=== PATIENT | female | born 1965 | race Caucasian/White ===

== ENCOUNTER 2018-08-03 10:11 | Observation (INO) | payer OTHER ==
[2018-08-03] MEDS ORDERED: NS 500 ML IV ONE (10:24)
[2018-08-03] MEDS ORDERED: LORazepam 2 MG/ML INJ ONE (10:29)
[2018-08-03 10:30] LABS: PLATELET COUNT 317 10^3/uL (150-400)
[2018-08-03 10:48] LABS: INR 1.04 (0.83-1.16); PROTIME(PATIENT) 13.8 SEC (12.0-15.0)
[2018-08-03] MEDS ORDERED: levETIRAcetam 1500MG/NACL 100 ML IV ONE (10:48)
[2018-08-03] MEDS ORDERED: LORazepam 2 MG/ML INJ IVP ONE ×2 (10:57→20:01)
--- NOTE | 2018-08-03 11:02 | EDPHY ---
H & P Time Seen by Provider: 08/03/18 10:24 HPI/ROS: HPI Seizure. 53-year-old female by ambulance from work. Reported unwitnessed fall per staff at her work place followed by seizure activity. EMS reports repeated seizure activity, brief 15-20 seconds, on the way to the hospital. She was given IV Versed. She tells me that she is not sure what happens. She does take Coumadin for history of DVT. No new medications. Blood sugar per EMS was in the 270s. She complains of a posterior occipital headache at this time. She denies any prior history of seizure disorder. ROS: Constitutional: No fever, no chills. No weakness. Eyes: No discharge. No changes in vision. ENT: No sore throat. No nasal congestion or rhinorrhea. Respiratory: No cough. No shortness of breath. Cardiac: No chest pain, no palpitations. Gastrointestinal: No abdominal pain, no vomiting, no diarrhea. Genitourinary: No hematuria. No dysuria or increased frequency with urination. Musculoskeletal: No back pain. No neck pain. No myalgias or arthralgias. Skin: No rashes. Neurological: No headache. No focal weakness or altered sensation. Past medical history: Type 2 diabetes, hyperlipidemia, hypertension, DVT, hypothyroid, GERD. Medications include lisinopril, metformin, a statin, Coumadin, Protonix. Social history: Nonsmoker. Denies alcohol. Denies IV drugs and street drugs. Here by herself. Physical Exam: General Appearance: Sleepy, postictal, response to verbal stimulus. This patient is responding to questions slow, slurred speech and short answers. This patient appears generally well-hydrated and well-nourished. Eyes: Pupils equal and round at 2-1 mm bilaterally, no pallor or injection. No lid edema, erythema or injection. No nystagmus. No photophobia. ENT, Mouth: Mucous membranes are moist. The pharyngeal tissues are unremarkable. No edema or swelling. No asymmetry suggestive of abscess. No erythema or exudates. No tongue lacerations or abrasions. Respiratory: There are no retractions, lungs are clear to auscultation anterior with good air movement bilaterally. Cardiovascular: Regular rate and rhythm. No murmur. Gastrointestinal: Abdomen is soft and nontender, no masses, bowel sounds normal. No focal tenderness at McBurney's point. No Winslow sign. Neurological: Motor sensory function is grossly intact. Cranial nerves are normal. Skin: Warm and dry, no rashes. Musculoskeletal: Neck is supple and nontender. No significant pain with flexion of her neck. Extremities are symmetrical. All joints range without pain or impingement. Psychiatric: No agitation. No depression. Database: EKG: EKG time is 11:01 a.m.; EKG shows a narrow complex normal sinus rhythm with a ventricular rate of 72. Borderline left axis deviation. The [place], QRS, QT intervals are within normal limits. There are no ST-T wave changes indicative of ischemic or injury pattern. No evidence of right heart strain. Interpreted by me. Imaging: CT head without contrast: Negative. Results were discussed with staff radiologist Dr. Rudy Palomo. CT cervical spine without contrast: Negative except for a right-sided parotid area mass. Results were discussed with staff radiologist Dr. Rudy Palomo Procedures: Emergency department course: Triage vital signs reviewed and are normal. IV was placed per EMS left antecubital. Patient placed on a monitor. She was placed on high-flow humidified nasal cannula oxygen. During her initial 45 min in the emergency department she had 2 more seizures, the 1st 1 lasted about 15 sec and resolved. IV Keppra at 1.5 g has been ordered. She then had another seizure which was more prolonged lasting about 30-60 seconds with some tonic-clonic activity about 20 min later. She was given 1 mg of IV Ativan. CT imaging of brain to be obtained. CT imaging of cervical spine to be obtained secondary to altered mental status and unreliable history and fall. 11:40 a.m., the patient was re-evaluated. Repeat neurologic status is nonfocal. She is still postictal and sedated from a mg of IV Ativan. She is receiving her IV Keppra at this time. She has had 2 short seizures lasting about 15 sec in the interim. I discussed with her the results of her diagnostic studies. We will admit her to the hospitalist service for further evaluation and Neurology consultation. Hospitalist was paged. 11:45 a.m., spoke with on-call hospitalist, case discussed in detail. Patient accepted for admission to the hospitalist service under the care of Dr. Douglas Kimble. Neurology consultation deferred to hospitalist service. Patient's remaining emergency department course under my care has been uneventful. Patient admitted in stable condition. Differential Diagnosis: The differential diagnosis on this patient includes but is not limited to new onset seizure. Intracranial hemorrhage, hyponatremia, hypoglycemia unlikely. This represents a partial list of diagnoses considered. These considerations are based on history, physical exam, past history, reassessment and diagnostic testing. Smoking Status: Current every day smoker Constitutional: Initial Vital Signs O2 Sat (%) 94 08/03/18 10:24 O2 Delivery Mode Nasal Cannula O2 (L/minute) 4 Allergies/Adverse Reactions: No Known Allergies Allergy (Unverified 08/03/18 10:27) Home Medications: Medication Instructions Recorded Lisinopril 08/03/18 metFORMIN HCL 08/03/18 Medical Decision Making - Diagnostics Imaging Results: Imaging Impressions Head CT 08/03/18 10:24 Impression: 1. No acute intracranial findings. 2. Diffuse cerebral atrophy with periventricular and subcortical low attenuation consistent with chronic microvascular ischemic gliosis. 3. Indeterminant right parotid/periparotid mass, which could represent pleomorphic adenoma, adenopathy, or other etiology. Cervical Spine CT 08/03/18 10:25 Impression: 1. No acute posttraumatic abnormality identified. If there is persistent pain or neurologic deficit, consider MRI and/or flexion and extension views if clinically indicated. 2. 4.2 cm mass contiguous with the inferior right parotid, which could represent a parotid tumor such as pleomorphic adenoma or mucoepidermoid carcinoma, adenopathy or other etiology. 3. Additional findings as above. - Data Points Laboratory Results: Laboratory Results 08/03/18 10:00 08/03/18 10:00 08/03/18 08/03/18 08/03/18 10:00 10:00 10:00 WBC 9.06 10^3/uL 10^3/uL (3.80-9.50) RBC 5.12 10^6/uL 10^6/uL (4.18-5.33) Hgb 13.5 g/dL g/dL (12.6-16.3) Hct 44.2 % % (38.0-47.0) MCV 86.3 fL fL (81.5-99.8) MCH 26.4 pg L pg (27.9-34.1) MCHC 30.5 g/dL L g/dL (32.4-36.7) RDW 15.2 % % (11.5-15.2) Plt Count 317 10^3/uL 10^3/uL (150-400) MPV 9.3 fL fL (8.7-11.7) Neut % (Auto) 57.6 % % (39.3-74.2) Lymph % (Auto) 30.9 % % (15.0-45.0) [place] % (Auto) 5.6 % % (4.5-13.0) Eos % (Auto) 5.3 % % (0.6-7.6) Baso % (Auto) 0.4 % % (0.3-1.7) Nucleat RBC Rel Count 0.0 % % (0.0-0.2) Absolute Neuts (auto) 5.21 10^3/uL 10^3/uL (1.70-6.50) Absolute Lymphs (auto) 2.80 10^3/uL 10^3/uL (1.00-3.00) Absolute Monos (auto) 0.51 10^3/uL 10^3/uL (0.30-0.80) Absolute Eos (auto) 0.48 10^3/uL H 10^3/uL (0.03-0.40) Absolute Basos (auto) 0.04 10^3/uL 10^3/uL (0.02-0.10) Absolute Nucleated RBC 0.00 10^3/uL 10^3/uL (0-0.01) Immature Gran % 0.2 % % (0.0-1.1) Immature Gran # 0.02 10^3/uL 10^3/uL (0.00-0.10) PT 13.8 SEC SEC (12.0-15.0) INR 1.04 (0.83-1.16) APTT 28.3 SEC SEC (23.0-38.0) Sodium 140 mEq/L mEq/L (135-145) Potassium 4.1 mEq/L mEq/L (3.5-5.2) Chloride 108 mEq/L mEq/L (97-110) Carbon Dioxide 22 mEq/l mEq/l (22-31) Anion Gap 10 mEq/L mEq/L (6-14) BUN 20 mg/dL mg/dL (7-23) Creatinine 1.0 mg/dL mg/dL (0.6-1.0) Estimated GFR 58 Glucose 240 mg/dL H mg/dL (70-100) Calcium 9.0 mg/dL mg/dL (8.5-10.4) Ethyl Alcohol < 10 mg/dL mg/dL (0-10) Medications Given: Discontinued Medications Sodium Chloride (Ns) 500 mls @ 0 mls/hr IV ONCE ONE; Wide Open PRN Reason: Protocol Stop: 08/03/18 10:25 Last Admin: 08/03/18 10:26 Dose: 500 mls Levetiracetam (Keppra (Premix)) 100 mls @ 400 mls/hr IV ONCE ONE Stop: 08/03/18 11:02 Last Admin: 08/03/18 11:33 Dose: 100 mls Lorazepam (Ativan Injection) 1 mg IVP EDNOW ONE Stop: 08/03/18 10:58 Last Admin: 08/03/18 10:58 Dose: 1 mg Departure - Departure Disposition: [facility] Acute Clinical Impression: New onset seizure, Status epilepticus
[2018-08-03] MEDS ORDERED: ONDANSETRON 4 MG/2 ML VIAL IVP PRN (15:07)
[2018-08-03] MEDS ORDERED: ONDANSETRON DISINTEGRATING 4 MG TAB PO PRN (15:07)
[2018-08-03] MEDS ORDERED: IBUPROFEN 200 MG TAB PO PRN (15:07)
[2018-08-03] MEDS ORDERED: D50W 25 GM/50 ML SYR IVP PRN (15:13)
--- NOTE | 2018-08-03 15:21 | CPEKG ---
Test Reason : OPEN Blood Pressure : / mmHG Vent. Rate : 072 BPM Atrial Rate : 074 BPM P-R Int : 172 ms QRS Dur : 098 ms QT Int : 412 ms P-R-T Axes : 015 -18 025 degrees QTc Int : 451 ms Sinus rhythm Borderline left axis deviation Confirmed by Pratik Capone ([id number]) on 08/03/2018 3:20:41 PM Referred By: Pratik Capone Confirmed By:Pratik Capone
--- NOTE | 2018-08-03 15:43 | GHP ---
DATE OF ADMISSION: 08/03/2018 The patient is a 53-year-old female with a history of diabetes who had an apparent seizure at work. I witnessed 1 of these and they consisted of a depressed level of consciousness with eyes rolling clary k in her head without tonic clonic movements. Immediately thereafter she was able to apologize for i nterrupting our conversation. She does not drink alcohol. She has a posterior headache. Her sister recently from comp lications of cirrhosis, which she found to be emotionally trying and stressful event. No fever, chills, cough, sputum, nausea, vomiting, diarrhea. Does not have a stiff neck. She descri bes a little bit of dizziness and a little bit of right-sided weakness. She wakes up with morning he adaches at times. REVIEW OF SYSTEMS: Complete 10-point review of systems conducted, negative except as noted in the HP I. PAST MEDICAL HISTORY: Type 2 diabetes, hyperlipidemia, hypertension, DVT on Coumadin, hypothyroidism , GERD. MEDICATIONS: Include lisinopril, metformin, statin, Coumadin, Protonix. SOCIAL HISTORY: Nonsmoker. No alcohol. FAMILY HISTORY: Notable cirrhosis in the sister secondary to alcohol. PHYSICAL EXAMINATION: PRESENTING VITALS: Temperature 37, Blood pressure 105/62, pulse 82, breathing 20 times a minute, 98% on 4 L. GENERAL: No acute distress. HEENT: Sclerae anicteric. Oropharynx nitesh r. Mucous membranes moist. NECK: Supple without lymphadenopathy or JVD. LUNGS: Clear to ausculta tion bilaterally. HEART: S1, S2. ABDOMEN: Soft, nontender, nondistended. LOWER EXTREMITIES: No e narda. Calves nontender. SKIN: Without rash. NEUROLOGIC: Exam is notable for possible right-sided w eakness with intact sensation. LABS: White count 9, hematocrit 44, platelets are 317,000. INR is 1. Sodium 140, potassium 4.1, ch loride 108, bicarb 22, BUN 20, creatinine 1.0, glucose 240, calcium 9. Tox screen negative. Ethanol negative. Noncontrast head CT shows diffuse cerebral atrophy. Chronic microvascular ischemic disease. Indeter minate right parotid mass. Cervical spine CT shows a 4.2 cm mass in the inferior right parotid gland , otherwise unremarkable. EKG shows sinus at 72 with normal axis and intervals. No ST or T-wave anita nges. I discussed case with Dr. Pratik Capone. ASSESSMENT/PLAN: A 53-year-old female with new onset seizures. 1. Seizures. This certainly sounds like a new seizure. However, having witnessed one, given her imm ediate return to cogence, the absence of metabolic acidosis and a normal noncontrast head CT in the s etting of recent psychosocial stressors, does make me strongly consider pseudoseizures. That said, a full seizure evaluation is warranted and will be undertaken. Perform an MRI with and without contra st, EEG. Neurology will see tomorrow. 2. Parotid mass. This warrants outpatient ENT followup. 3. Diabetes. Sliding scale. 4. History of deep vein thrombosis. Her INR is 1 suggesting noncompliance. We will follow. DISPOSITION: Observation status. /[id number]/MODL
[2018-08-03] MEDS: oxyCODONE IR 5 MG TAB PO PRN ×3 (16:00→21:42)
[2018-08-03] MEDS ORDERED: GADOBUTROL 10 ML VIAL IVP ONE (17:34)
[2018-08-03] MEDS: INSULIN LISPRO 100 UNIT/ML SC SCH (18:47)
[2018-08-03] MEDS: ACETAMINOPHEN 500 MG TAB PO PRN (18:56)
[2018-08-03] MEDS: levETIRAcetam 500 MG TAB PO SCH (20:14)
[2018-08-03] MEDS ORDERED: diphenhydrAMINE 25 MG CAP PO PRN (22:51)
[2018-08-04] MEDS ORDERED: hydrOXYzine HCL 25 MG TAB PO ONE (02:05)
[2018-08-04 05:25] LABS: PLATELET COUNT 282 10^3/uL (150-400)
[2018-08-04 05:28] LABS: INR 1.09 (0.83-1.16); PROTIME(PATIENT) 14.3 SEC (12.0-15.0)
[2018-08-04] MEDS: INSULIN LISPRO 100 UNIT/ML SC SCH ×2 (07:46→13:38)
[2018-08-04] MEDS: ACETAMINOPHEN 500 MG TAB PO PRN (07:50)
[2018-08-04] MEDS: levETIRAcetam 500 MG TAB PO SCH (07:51)
--- NOTE | 2018-08-04 09:38 | NEUROPROG ---
Assessment: [id number] - Neurology Consult: - CC: Dr. Kimble (hospitalist) consulted neurology for confusion spell. Results placed in EMR for his review. - HPI: 08/04/18: Pt noted to have episode at work concerning for seizure (altered awareness associated with eyes rolling back and memory loss, no generalized convulsions). She has minimal post-ictal confusion. Sister recently and she does endorse significant stress recently. No alcohol use. Brain MRI wwo unremarkable except for parotid neck mass. Neurologic exam on 08/04/18 normal. I was not sure if her confusion spell was a focal seizure or a stress reaction from grief. I will check EEG but if no unremarkable then will plan on no seizure meds at this time with clinic f/u in 4-6 weeks. - PMHx: DM2, HLD, HTN, DVT on coumadin, hypothyroidism, GERD Home Meds: lisinopril, metformin, statin, coumadin, protonix - SHx: no alcohol FHx: cirrhosis - ROS: Pt denied acute fever, total vision loss, active severe chest pain, respiratory failure, total body severe rash, total bowel/bladder incontinence, psychosis, active seizures, or active bleeding - O: VS reviewed General: Alert Eyes: Fundoscopic exam not able to visualize optic disks CV: Heart RRR, no murmur, no carotid bruit Lungs: Clear to auscultation bilaterally, no rhonchi or rales Neuro: - Mental: . Oriented x person/place/date . concentration appears normal . speech fluency/comprehension normal . memory appears normal . fund of knowledge appear intact - Cranial Nerves: . II: PERRL, VFFTC . III/IV/: EOMI, no nystagmus, normal smooth pursuits, no Ptosis . V: facial sensation intact to LT . VII: face symmetric to eye closure and smile . VIII: hearing intact to conversation . IX/X: uvula raises symmetrically . XI: SCM 5/5 B/L strength . XII: tongue protrudes midline w/nl strength - Motor: . Tone: normal tone in all 4 extremity . 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 Possible Seizure 08/03/18: Brain MRI wwo unremarkable. - 2. Parotid Neck Mass: Defer to hospitalist - Plan: - No driving until event free for 90 days - EEG, if seizures seen will begin Keppra 500 mg bid - F/U in neurology clinic 4-6 weeks after discharge Objective: Vital Signs Temp Pulse Resp BP Pulse Ox 36.7 C 70 16 118/65 96 08/04/18 07:26 08/04/18 07:26 08/04/18 07:26 08/04/18 07:26 08/04/18 07:26 Laboratory Results 08/04/18 05:09 08/04/18 05:09 08/03/18 08/04/18 08/05/18 05:59 05:59 05:59 Intake Total 1600 Output Total 1200 400 Balance 400 -400 PT 14.3 SEC (12.0-15.0) 08/04/18 05:09 INR 1.09 (0.83-1.16) 08/04/18 05:09 Allergies/Adverse Reactions: Iodinated Contrast- Oral and IV Dye Allergy (Verified 08/03/18 13:17)
[2018-08-04] MEDS ORDERED: PNEUMOCOCCAL 0.5ML VACCINE VIAL (PNEUMOVAX 23) IM ONE (10:15)
[2018-08-04 12:47] VITALS: BP 130/69
--- NOTE | 2018-08-04 14:33 | GDS ---
DISCHARGE DIAGNOSES: 1. Possible seizure. 2. Headache. 3. Diabetes. 4. Hypertension. 5. Hyperlipidemia. 6. DVT, on Coumadin. 7. Hypothyroidism. 8. Gastroesophageal reflux disease. CONSULTATIONS: Neurology. PROCEDURES: EEG: No evidence of seizure. HISTORY OF PRESENT ILLNESS: 53-year-old female with history of diabetes, hypertension, hyperlipidemia who had apparent seizure at work. My partner, Dr. Kimble, witnessed 1 of these and he considered it a depressed level of consciousness with eyes rolling back in her head without tonoclonic movements. Immediately thereafter, she was able to apologize for interrupting the conversation. She has been under an increased amount of stress. 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 No fevers, chills, or sweats. No nausea, vomiting, or diarrhea. HOSPITAL COURSE: 1. Seizure: symptoms not consistent with seizure given no postictal state, no acidosis. Neurology evaluated and no mass on MRI, normal EEG. Driving restrictions for 90 days,follow up with Dr. Wilson in 4 weeks. 2. Parotid mass: 4.2 cm. Needs outpatient ENT followup for biopsy. 3. Diabetes. Resume metformin. 4. Hypertension. Home medications. 5. DVT, on Coumadin. DISPOSITION: Patient is stable for discharge home. FOLLOWUP: 1. Primary care physician. 2. ENT referral for parotid mass. PHYSICAL EXAMINATION: VITAL SIGNS: Today, temperature 36.6, blood pressure is 130/69, heart rate in the 60s, respirations 16, 93% on 1 L. GENERAL: She is obese in no acute distress. HEENT: PERRLA. Moist mucous membranes. CV: Regular rate and rhythm. LUNGS: Clear. ABDOMEN: Soft, nontender, nondistended. Positive bowel sounds. : No Chopra. MUSCULOSKELETAL: 5/5 upper lower extremity strength. NEURO: 2 through 12 intact. PSYCH: Alert and oriented x3. CODE STATUS: Patient completed MOS form. She wishes for DNR and comfort measures if clinically declines in the future. TIME SPENT ON DISCHARGE: Greater than 30 minutes. /[id number]/MODL MTDD
[2018-08-04] MEDS ORDERED: PNEUMOCOCCAL 0.5ML VACCINE VIAL (PNEUMOVAX 23) ONE (15:08)
--- NOTE | 2018-08-04 19:50 | CPEEG ---
DATE OF STUDY: 08/04/2018 DATE OF INTERPRETATION: 08/04/18 INTERPRETATION: Normal EEG during wakefulness and sleep. There were no potentially epileptogenic ab normalities present in the recording. The findings of this EEG were directly communicated to the treating neurologist, Dr. Russell Wilson. REPORT: This EEG contains 10 Hz alpha activity over the posterior head regions. There was no abnorm al activation at rest. The background activity was normal and symmetric. The patient intermittently became drowsy and fell asleep during the study. There was no abnormal activation during drowsiness, sleep, or during times of arousal. /[id number]/MODL
== END 2018-08-04 14:45 | disposition home or self-care (01) ==
LOC: F3N 14:26
PROVIDERS: ADMIT Internal Medicine; ATTEND Internal Medicine
DX: R40.4 Transient alteration of awareness (principal); E86.9 Volume depletion, unspecified; K11.8 Other diseases of salivary glands; R51 Headache; E11.9 Type 2 diabetes mellitus without complications; I10 Essential (primary) hypertension; E78.5 Hyperlipidemia, unspecified; E03.9 Hypothyroidism, unspecified; K21.9 Gastro-esophageal reflux disease without esophagitis; Z79.01 Long term (current) use of anticoagulants; Z79.84 Long term (current) use of oral hypoglycemic drugs; Z86.718 Personal history of other venous thrombosis and embolism; Z66 Do not resuscitate
CPT/HCPCS: 70450; 70553; 72125; 93005; 95816; 96361; 96374; 96375; 99285; G0378; 80305; A9585; G0480; J1953; J2060